=== PATIENT | female | born 1995 | race African-American/Black ===

== ENCOUNTER 2022-05-09 11:03 | Inpatient (IN) | payer OTHER ==
[2022-05-09] MEDS ORDERED: PROMETHAZINE HCL 25 MG/1 ML VIAL IVPB ONE (12:01)
[2022-05-09] MEDS ORDERED: BUTORPHANOL TARTRATE 2 MG/ML VIAL IVPB ONE (12:01)
[2022-05-09] MEDS ORDERED: AMPICILLIN - 2 GM in SODIUM CHLORIDE 100 ML IVPB ONE (12:03)
[2022-05-09] MEDS ORDERED: OXYTOCIN 30 UNITS in 0.9% NS 30 UNIT/500 ML INFUS.BAG IVPB SCH (12:15)
[2022-05-09] MEDS ORDERED: AMPICILLIN SODIUM 2 GM VIAL ONE (12:23)
[2022-05-09] MEDS ORDERED: OXYTOCIN 30 UNITS in 0.9% NS 30 UNIT/500 ML INFUS.BAG IVPB ONE (12:23)
[2022-05-09] MEDS: ELECTROLYTE-148 SOLN 1,000 ML IV SCH (12:35)
[2022-05-09 13:38] VITALS: BMI 41.1
[2022-05-09] MEDS ORDERED: FENTANYL/BUPIVACAINE/NS/PF - PCEA - 50 ML DISP.SYRIN EP ONE ×3 (16:00→23:51)
[2022-05-09] MEDS ORDERED: BUTORPHANOL TARTRATE 2 MG/ML VIAL ONE (16:10)
[2022-05-09] MEDS ORDERED: PROMETHAZINE HCL 25 MG/1 ML VIAL ONE (16:10)
[2022-05-09] MEDS ORDERED: AMPICILLIN SODIUM 1 GM VIAL ONE ×2 (16:50→20:28)
[2022-05-09] MEDS: AMPICILLIN - 1 GM in SODIUM CHLORIDE 100 ML IVPB SCH ×2 (16:55→20:30)
[2022-05-09] MEDS ORDERED: FENTANYL CITRATE/PF 50 MCG/ML VIAL ONE (19:53)
[2022-05-09] MEDS: FENTANYL/BUPIVACAINE/NS/PF - PCEA - 50 ML DISP.SYRIN EP SCH ×2 (20:05→23:55)
[2022-05-09] MEDS ORDERED: NALOXONE HCL 0.4 MG/ML VIAL IVPUSH PRN (20:27)
[2022-05-09] MEDS ORDERED: ELECTROLYTE-148 SOLN 1,000 ML IV ONE (23:30)
[2022-05-10] MEDS: AMPICILLIN - 1 GM in SODIUM CHLORIDE 100 ML IVPB SCH (00:30)
[2022-05-10] MEDS ORDERED: AMPICILLIN SODIUM 1 GM VIAL ONE (00:31)
[2022-05-10] MEDS: ELECTROLYTE-148 SOLN 1,000 ML IV SCH (01:45)
[2022-05-10] MEDS ORDERED: LIDOCAINE HCL 1% PRESERVATIVE FREE - 30ML VIAL ONE (02:35)
[2022-05-10] MEDS ORDERED: OXYTOCIN 20 UNITS in 0.9% NS 20 UNIT/1,000 ML INFUS.BAG IV ONE (02:35)
[2022-05-10] MEDS ORDERED: BISACODYL 10 MG SUPP.RECT RC PRN (03:25)
[2022-05-10] MEDS ORDERED: oxyCODONE HCL 5 MG TABLET PO PRN (03:25)
[2022-05-10] MEDS ORDERED: BENZOCAINE 20% 57 GM BOTTLE TP PRN (03:25)
[2022-05-10] MEDS ORDERED: WITCH HAZEL 50% (TUCKS) 40 PAD/JAR PAD TP PRN (03:25)
[2022-05-10] MEDS ORDERED: METHYLERGONOVINE MALEATE 0.2 MG/1 ML AMP IM PRN (03:25)
[2022-05-10] MEDS ORDERED: ACETAMINOPHEN 325 MG TABLET (FP) PO PRN (03:25)
[2022-05-10] MEDS ORDERED: BENZOCAINE 28 GM HEMORRHOIDAL OINTMENT TP PRN (03:25)
[2022-05-10] MEDS ORDERED: OXYTOCIN 20 UNITS in 0.9% NS 20 UNIT/1,000 ML INFUS.BAG IV SCH (03:30)
[2022-05-10 04:21] LABS: CORD BASE EXCESS -2.5 mmol/L (0-2); CORD PCO2 47.4 mmHg (30-78); CORD pH 7.323 (7.14-7.44)
[2022-05-10 04:22] LABS: CORD BASE EXCESS -3.9 mmol/L (0-2); CORD HCO3 22.5 mmHg (20-29); CORD PCO2 45.4 mmHg (30-78); CORD pH 7.313 (7.14-7.44)
[2022-05-10] MEDS: PRENATAL VITAMINS W/ FOLIC ACID TABLET (FP) PO SCH (09:52)
[2022-05-10] MEDS: FERROUS SO4 325 MG TABLET (FP) PO SCH ×2 (09:53→17:46)
[2022-05-10] MEDS: IBUPROFEN 600 MG TABLET (FP) PO PRN ×2 (09:53→22:19)
[2022-05-11] MEDS: IBUPROFEN 600 MG TABLET (FP) PO PRN ×3 (03:00→20:45)
[2022-05-11 08:41] LABS: BASO % 0.3 % (0-2.0); EOS % 1.7 % (0-4.5); HEMATOCRIT 35.6 % (32.4-45.2); HEMOGLOBIN 11.7 GM/dL (10.7-15.3); LYMPH % 26.8 % (8-40); MCH 29.3 pg (25.7-33.7); MCHC 32.8 g/dl (32.0-36.0); MEAN CELL VOLUME 89.4 fl (80-96); MEAN PLT VOLUME 8.2 fl (7.5-11.1); MONO % 8.3 % (3.8-10.2); NEUT % 62.9 % (42.8-82.8); PLATELET COUNT 237 10^3/uL (134-434); RBC 3.98 M/mm3 (3.60-5.2); RDW 14.6 % (11.6-15.6); WHITE BLOOD COUNT 14.3 K/mm3 (4.0-10.0)
[2022-05-11] MEDS: PRENATAL VITAMINS W/ FOLIC ACID TABLET (FP) PO SCH (09:15)
[2022-05-11] MEDS: FERROUS SO4 325 MG TABLET (FP) PO SCH ×2 (09:15→18:10)
[2022-05-11 11:06] VITALS: RESP 18
[2022-05-11] MEDS ORDERED: SENNOSIDES/DOCUSATE COMBO (SENNA PLUS) TABLET (UD) PO PRN (22:00)
[2022-05-12 00:20] VITALS: TEMP 98.6
[2022-05-12] MEDS: FERROUS SO4 325 MG TABLET (FP) PO SCH (07:43)
[2022-05-12 08:52] VITALS: BP 125/70; PULSE 90
[2022-05-12] MEDS: PRENATAL VITAMINS W/ FOLIC ACID TABLET (FP) PO SCH (10:00)
== END 2022-05-12 13:20 | disposition home or self-care (01) | DRG 560 ==
LOC: JLDR 11:03 → J3W 05-10 05:06
PROVIDERS: ADMIT Obstetrics & Gynecology; ATTEND Obstetrics & Gynecology
PROC: 10E0XZZ Delivery of Products of Conception, External Approach (ICD-10-PCS; principal; 2022-05-10)
DX: O48.0 Post-term pregnancy (principal); Z3A.41 41 weeks gestation of pregnancy; O99.213 Obesity complicating pregnancy, third trimester; O99.824 Streptococcus B carrier state complicating childbirth; Z37.0 Single live birth
CPT/HCPCS: 36415; 36600; 59409; 80053; 81003; 82803; 85025; 85610; 86780; 86850; 86900; 86901; C9803-CS; U0003; U0005